=== PATIENT | male | born 1965 | race Caucasian/White ===

== ENCOUNTER 2019-01-31 15:57 | Emergency (ER) | payer SELFPAY ==
--- NOTE | 2019-01-31 16:32 | ER Document Report ---
ED Medical Screen (RME) - General Chief Complaint: Irregular Pulse Stated Complaint: SYNCOPE Time Seen by Provider: 01/31/19 16:23 Notes: RAPID MEDICAL EVALUATION DISCLOSURE I have seen this patient as part of a Rapid Medical Evaluation and, if applicable, placed any initially appropriate orders. The patient will be seen and fully evaluated, including a full history and physical exam, by a provider (in Main ED or Fast Track) when a room becomes available. 53-year-old male PMH aortic valve replacement (porcine valve) here with complaints of syncope, shortness of breath, palpitations, and tunnel vision ongoing for the past few weeks. His first episode was 3-4 weeks ago but then had another one yesterday and then earlier today had all of the symptoms (except the syncope) and became very lightheaded prompting him to come in for evaluation. He has been checking his heart rate and states that it has been varying greatly between 40 bpm and 70 bpm. He denies any chest pain discomfort. EXAM CTAB RRR with systolic murmur TRAVEL OUTSIDE OF THE [place] IN LAST 30 DAYS: No - Related Data Allergies/Adverse Reactions: No Known Allergies Allergy (Verified 01/31/19 15:58) Past Medical History - Social History Chew tobacco use (# tins/day): Yes - Past Medical History Cardiac Medical History: Reports: Hx Hypertension Renal/ Medical History: Denies: Hx Peritoneal Dialysis Past Surgical History: Reports: Hx Cardiac Surgery - aortic valve replace-2012 Physical Exam - Vital signs Vitals: Temp Pulse Resp BP Pulse Ox 98.3 F 69 18 185/75 H 98 01/31/19 16:13 01/31/19 16:13 01/31/19 16:13 01/31/19 16:13 01/31/19 16:13 Course - Vital Signs Vital signs: Temp Pulse Resp BP Pulse Ox 98.3 F 69 18 185/75 H 98 01/31/19 16:13 01/31/19 16:13 01/31/19 16:13 01/31/19 16:13 01/31/19 16:13
[2019-01-31 16:59] LABS: ABSOLUTE BASOPHILS # (AUTO) 0.1 10^3/uL (0.0-0.2); ABSOLUTE EOSINOPHILS # (AUTO) 0.1 10^3/uL (0.0-0.6); ABSOLUTE MONOCYTES (AUTO) 0.9 10^3/uL (0.1-1.4); ABSOLUTE NEUT (AUTO) 3.8 10^3/uL (1.7-8.2); EOSINOPHILS % (AUTO) 1.9 % (0-6); HEMATOCRIT 42.4 % (37.9-51.0); HEMOGLOBIN 14.4 g/dL (13.5-17.0); LYMPHOCYTES % (AUTO) 29.6 % (13-45); MEAN CORPUSCULAR HGB CONC 33.9 g/dL (32.0-36.0); MEAN CORPUSCULAR VOLUME 89 fl (80-97); MONOCYTES % (AUTO) 12.4 % (3-13); PLATELET COUNT 190 10^3/uL (150-450); RED CELL DISTRIBUTION WIDTH 13.4 % (11.5-14.0); SEGMENTED NEUTROPHILS % (AUTO) 55.1 % (42-78); TOTAL CELLS COUNTED % (AUTO) 100 %; WHITE BLOOD COUNT 6.9 10^3/uL (4.0-10.5)
--- NOTE | 2019-01-31 17:06 | RADIOLOGY REPORT (SQ) ---
EXAM DESCRIPTION: CHEST 2 VIEWS COMPLETED DATE/TIME: 01/31/2019 4:45 pm REASON FOR STUDY: SOB, palpitations COMPARISON: None. EXAM PARAMETERS: NUMBER OF VIEWS: two views TECHNIQUE: Digital Frontal and Lateral radiographic views of the chest acquired. RADIATION DOSE: NA LIMITATIONS: none FINDINGS: LUNGS AND PLEURA: No opacities, masses or pneumothorax. No pleural effusion. MEDIASTINUM AND HILAR STRUCTURES: No masses or contour abnormalities. HEART AND VASCULAR STRUCTURES: Heart normal size. No evidence for failure. BONES: No acute findings. HARDWARE: Median sternotomy wires and artificial heart valve. OTHER: No other significant finding. IMPRESSION: NO ACUTE RADIOGRAPHIC FINDING IN THE CHEST. TECHNICAL DOCUMENTATION: JOB ID: [id number] [email or web address]- All Rights Reserved Reading location - IP/workstation name: [email or web address]
[2019-01-31 17:07] LABS: ALANINE AMINOTRANSFERASE 224 U/L (21-72); ALBUMIN 4.5 g/dL (3.5-5.0); ALKALINE PHOSPHATASE 67 U/L (38-126); ANION GAP 10 (5-19); ASPARTATE AMINO TRANSFERASE 107 U/L (17-59); BILIRUBIN,DIRECT 0.4 mg/dL (0.0-0.4); BILIRUBIN,TOTAL 0.8 mg/dL (0.2-1.3); BLOOD UREA NITROGEN 18 mg/dL (7-20); CALCIUM 9.5 mg/dL (8.4-10.2); CARBON DIOXIDE 28 mmol/L (22-30); CHLORIDE 106 mmol/L (98-107); GLUCOSE 100 mg/dL (75-110); POTASSIUM 4.5 mmol/L (3.6-5.0); SODIUM 143.6 mmol/L (137-145); TOTAL PROTEIN 6.5 g/dL (6.3-8.2)
[2019-01-31 17:21] LABS: TROPONIN I 0.085 ng/mL
[2019-01-31] MEDS ORDERED: ASPIRIN 81 MG TABLET, CHEWABLE PO ONE (17:24)
--- NOTE | 2019-01-31 17:26 | EKG REPORT ---
SEVERITY:- ABNORMAL ECG - SINUS RHYTHM LEFT BUNDLE BRANCH BLOCK : Confirmed by: Dario Elaine MD 31-Jan-2019 17:26:10
--- NOTE | 2019-01-31 18:04 | ER Document Report ---
ED Cardiac - General Chief Complaint: Irregular Pulse Stated Complaint: SYNCOPE Time Seen by Provider: 01/31/19 16:23 TRAVEL OUTSIDE OF THE [place] IN LAST 30 DAYS: No - HPI Notes: Patient is a 53-year-old male that presents to the emergency department for chief complaint of syncope. Patient reports over the last 3-4 weeks he has had 3 syncopal episodes. He states the first 1 occurred while he was on his hands and knees at work. He states he started to get tunnel vision and then woke up on the ground with his glasses bent. He states he has had 2 similar episodes both well sitting. He denied any head injury during these episodes. He states after the last episode yesterday he did check his pulse and it was 40. He has a history of aortic porcine valve replacement about 6 years ago. He denies history of bradycardia or syncope in the past. He denies being on any beta-blockers and states his o nly home medication is losartan. Patient states today he had one episode where he felt lightheaded and had tunnel vision but did not completely lose consciousness. Since being in the emergency room he states he has felt normal. He denies associated chest pain but states he gets a "funny feeling" in his chest when he is about to pass out. Past Medical History: Hypertension Past Surgical History: Porcine aortic valve replacement Social History: Denies drugs alcohol and tobacco Family History: Reviewed and noncontributory for presenting illness Allergies: Reviewed, see documented allergy list. REVIEW OF SYSTEMS: CONSTITUTIONAL : No fever No chills No diaphoresis No recent illness EENT: No vision changes No congestion No sore throat CARDIOVASCULAR: No chest pain palpitations Syncope RESPIRATORY: No shortness of breath No cough No difficulty breathing GASTROINTESTINAL: No abdominal pain No nausea No vomiting No diarrhea GENITOURINARY: No dysuria No hematuria No difficulty urinating MUSCULOSKELETAL: No back pain No leg pain No arm pain SKIN: No rashes No lesions LYMPHATIC: No swollen, enlarged glands. NEUROLOGICAL: No lightheadedness No headache No weakness No paresthesias PSYCHIATRIC: No anxiety No depression PHYSICAL EXAMINATION: Vital signs reviewed, nursing noted reviewed. GENERAL: Well-appearing, well-nourished and in no acute distress. HEAD: Atraumatic, normocephalic. EYES: Eyes appear normal, extraocular movements intact, sclera anicteric, conjunctiva are normal. ENT: nares patent, oropharynx clear without exudates. Moist mucous membranes. NECK: Normal range of motion, supple without lymphadenopathy LUNGS: Breath sounds clear to auscultation bilaterally and equal. No wheezes rales or rhonchi. HEART: Bradycardic rate, regular rhythm without murmurs ABDOMEN: Soft, nontender, normoactive bowel sounds. No rebound, guarding, or rigidity. No masses appreciated. EXTREMITIES: Nontender, good range of motion, no pitting or edema. NEUROLOGICAL: No focal neurological deficits. Moves all extremities spontaneously Motor and sensory grossly intact on exam. PSYCH: Normal mood, normal affect. SKIN: Warm, Dry, normal turgor, no rashes or lesions noted on exposed skin - Related Data Allergies/Adverse Reactions: No Known Allergies Allergy (Verified 01/31/19 15:58) Past Medical History - Social History Smoking Status: Never Smoker Chew tobacco use (# tins/day): Yes Family History: Reviewed & Not Pertinent Patient has suicidal ideation: No Patient has homicidal ideation: No - Past Medical History Cardiac Medical History: Reports: Hx Hypertension Renal/ Medical History: Denies: Hx Peritoneal Dialysis Past Surgical History: Reports: Hx Cardiac Surgery - aortic valve replace-2012 Physical Exam - Vital signs Vitals: Temp Pulse Resp BP Pulse Ox 98.3 F 69 18 185/75 H 98 01/31/19 16:13 01/31/19 16:13 01/31/19 16:13 01/31/19 16:13 01/31/19 16:13 Course - Re-evaluation Re-evalutation: 01/31/19 18:03 Vitals reviewed. Nursing notes reviewed. Patient is mentating appropriately and asymptomatic during my exam. His telemetry monitoring shows a heart rate ranging from 41-47. Patient's monitor appears to have a heart block however his initial EKG showed only a mild AL prolongation. Repeat EKG confirms complete heart block. Patient did have pacer pads placed with a crash cart in the room however he has been mentating normally with a stable blood pressure and has not required transcutaneous pacing. His lab work shows a slight elevation in his troponin at 0.085 and he has received aspirin. Patients care was discussed with Dr. Baldwin at cardiac [facility] who has accepted patient for transfer. Plan to transfer for pacemaker placement and EP evaluation. Patient in agreement with plan of care and stable for transfer Laboratory 01/31/19 01/31/19 01/31/19 16:41 16:41 16:41 WBC 6.9 RBC 4.80 Hgb 14.4 Hct 42.4 MCV 89 MCH 30.0 MCHC 33.9 RDW 13.4 Plt Count 190 Seg Neutrophils % 55.1 Lymphocytes % 29.6 Monocytes % 12.4 Eosinophils % 1.9 Basophils % 1.0 Absolute Neutrophils 3.8 Absolute Lymphocytes 2.0 Absolute Monocytes 0.9 Absolute Eosinophils 0.1 Absolute Basophils 0.1 Sodium 143.6 Potassium 4.5 Chloride 106 Carbon Dioxide 28 Anion Gap 10 BUN 18 Creatinine 1.07 Est GFR ( Amer) > 60 Est GFR (Non-Af Amer) > 60 Glucose 100 Calcium 9.5 Magnesium 2.0 Total Bilirubin 0.8 Direct Bilirubin 0.4 Neonat Total Bilirubin Not Reportable Neonat Direct Bilirubin Not Reportable Neonat Indirect Bili Not Reportable AST 107 H ALT 224 H Alkaline Phosphatase 67 Troponin I 0.085 NT-Pro-B Natriuret Pep 1740 H Total Protein 6.5 Albumin 4.5 TSH 01/31/19 16:41 WBC RBC Hgb Hct MCV MCH MCHC RDW Plt Count Seg Neutrophils % Lymphocytes % Monocytes % Eosinophils % Basophils % Absolute Neutrophils Absolute Lymphocytes Absolute Monocytes Absolute Eosinophils Absolute Basophils Sodium Potassium Chloride Carbon Dioxide Anion Gap BUN Creatinine Est GFR ( Amer) Est GFR (Non-Af Amer) Glucose Calcium Magnesium Total Bilirubin Direct Bilirubin Neonat Total Bilirubin Neonat Direct Bilirubin Neonat Indirect Bili AST ALT Alkaline Phosphatase Troponin I NT-Pro-B Natriuret Pep Total Protein Albumin TSH 2.50 Chest X-Ray 01/31/19 16:29 IMPRESSION: NO ACUTE RADIOGRAPHIC FINDING IN THE CHEST. - Vital Signs Vital signs: Temp Pulse Resp BP Pulse Ox 98.3 F 69 18 185/75 H 98 01/31/19 16:13 01/31/19 16:13 01/31/19 16:13 01/31/19 16:13 01/31/19 16:13 - Laboratory Result Diagrams: 01/31/19 16:41 01/31/19 16:41 Laboratory results interpreted by me: 01/31/19 01/31/19 16:41 16:41 AST 107 H ALT 224 H NT-Pro-B Natriuret Pep 1740 H - EKG Interpretation by Me Additional EKG results interpreted by me: 01/31/19 18:05 Interpreted by myself 11/23/2008: Normal sinus rhythm with first-degree AV block, left bundle branch block, left axis 1734: Complete heart block, rate 45, wide QRS complexes Critical Care Note - Critical Care Note Total time excluding time spent on procedures (mins): 40 Comments: 40 Minutes of critical care time spent in direct contact evaluating and reevaluating the patient, treating symptoms, reviewing labs and studies and speaking with family and consultants excluding any procedures. Patient with potential for hemodynamic decompensation Discharge - Discharge Clinical Impression: Complete heart block Syncope Qualifiers: Syncope type: unspecified Qualified Code(s): R55 - Syncope and collapse Condition: Stable Disposition: [facility]
[2019-01-31 18:26] VITALS: BP 158/61
--- NOTE | 2019-01-31 22:53 | EKG REPORT ---
SEVERITY:- ABNORMAL ECG - COMPLETE AV BLOCK WITH WIDE QRS COMPLEX VR 45. : Confirmed by: Dario Elaine MD 31-Jan-2019 22:53:24
== END 2019-01-31 18:55 | disposition short-term general hospital (02) ==
LOC: ER 15:57
DX: I44.2 Atrioventricular block, complete (principal); R00.1 Bradycardia, unspecified; R55 Syncope and collapse; R74.8 Abnormal levels of other serum enzymes; I10 Essential (primary) hypertension; Z79.899 Other long term (current) drug therapy; Z95.3 Presence of xenogenic heart valve; Z72.0 Tobacco use
CPT/HCPCS: 36415; 71046; 80053; 83735; 83880; 84443; 84484; 85025; 93005; 93010; 99291

== ENCOUNTER 2019-09-21 10:22 | Emergency (ER) | payer MEDICAID ==
--- NOTE | 2019-09-21 11:04 | ER Document Report ---
ED Medical Screen (RME) - General Chief Complaint: Dizziness Stated Complaint: DIZZINESS Time Seen by Provider: 09/21/19 10:59 Mode of Arrival: Ambulatory Information source: Patient Notes: 54-year-old male presented to ED for dizzy lightheaded euphoric feeling after he finished his treadmill at cardiac rehab. He states he told him to check them out because he did not feel right. He states he was pacemaker was placed and it 60 when his pacemaker was set for 70. He states now he feels dizzy but nothing as dramatic as earlier. Until that his pacemaker is firing again. Is alert oriented respirations regular nonlabored speaking in full sentences EKG does show a pulse rate of 90. Patient states he had a aortic valve replacement twice this year and a pacemaker placed when he placed his aortic valve the second time they left the lead out and that is what he felt like today was like he is leaving the left out again. He states his pacemaker was checked in August. I have greeted and performed a rapid initial assessment of this patient. A comprehensive ED assessment and evaluation of the patient, analysis of test results and completion of medical decision making process will be conducted by an additional ED providers. TRAVEL OUTSIDE OF THE [place] IN LAST 30 DAYS: No - Related Data Allergies/Adverse Reactions: No Known Allergies Allergy (Verified 09/21/19 10:58) Past Medical History - Past Medical History Cardiac Medical History: Reports: Hx Hypertension Renal/ Medical History: Denies: Hx Peritoneal Dialysis Past Surgical History: Reports: Hx Cardiac Surgery - aortic valve replace-2012
[2019-09-21 11:41] LABS: ABSOLUTE BASOPHILS # (AUTO) 0.1 10^3/uL (0.0-0.2); ABSOLUTE EOSINOPHILS # (AUTO) 0.1 10^3/uL (0.0-0.6); ABSOLUTE LYMPHOCYTES (AUTO) 2.1 10^3/uL (0.5-4.7); ABSOLUTE MONOCYTES (AUTO) 1.1 10^3/uL (0.1-1.4); BASOPHILS % (AUTO) 1.5 % (0-2); EOSINOPHILS % (AUTO) 1.4 % (0-6); HEMATOCRIT 44.2 % (37.9-51.0); HEMOGLOBIN 13.7 g/dL (13.5-17.0); LYMPHOCYTES % (AUTO) 24.6 % (13-45); MEAN CORPUSCULAR HEMOGLOBIN 22.4 pg (27.0-33.4); MEAN CORPUSCULAR HGB CONC 31.1 g/dL (32.0-36.0); MEAN CORPUSCULAR VOLUME 72 fl (80-97); MONOCYTES % (AUTO) 12.8 % (3-13); PLATELET COUNT 251 10^3/uL (150-450); RED BLOOD COUNT 6.14 10^6/uL (4.35-5.55); RED CELL DISTRIBUTION WIDTH 18.5 % (11.5-14.0); SEGMENTED NEUTROPHILS % (AUTO) 59.7 % (42-78); TOTAL CELLS COUNTED % (AUTO) 100 %; WHITE BLOOD COUNT 8.3 10^3/uL (4.0-10.5)
[2019-09-21 11:47] LABS: INTERNATIONAL RATION (INR) 1.06; PROTHROMBIN TIME 13.8 SEC (11.4-15.4)
[2019-09-21 11:48] LABS: PARTIAL THROMBOPLASTIN TIME 28.4 SEC (23.5-35.8)
--- NOTE | 2019-09-21 11:54 | RADIOLOGY REPORT (SQ) ---
EXAM DESCRIPTION: CT HEAD WITHOUT COMPLETED DATE/TIME: 09/21/2019 11:45 am REASON FOR STUDY: Severe new onset headache COMPARISON: None. TECHNIQUE: Axial images acquired through the brain without intravenous contrast. Images reviewed wi th bone, brain and subdural windows. Additional sagittal and coronal reconstructions were generated. Images stored on PACS. All CT scanners at this facility use dose modulation, iterative reconstruction, and/or weight based d osing when appropriate to reduce radiation dose to as low as reasonably achievable (ALARA). [facility]: Dose Right [facility]: CareDose [facility]: Dose Right [facility]: Teradose 4D [facility]: Nexmo RADIATION DOSE: CT Rad equipment meets quality standard of care and radiation dose reduction techniq ues were employed. CTDIvol: 53.2 mGy. DLP: 1017 mGy-cm. mGy. LIMITATIONS: None. FINDINGS: VENTRICLES: Normal size and contour. CEREBRUM: No masses. No hemorrhage. No midline shift. No evidence for acute infarction. Normal gra y/white matter differentiation. No areas of low density in the white matter. CEREBELLUM: No masses. No hemorrhage. No alteration of density. No evidence for acute infarction. EXTRAAXIAL SPACES: No fluid collections. No masses. ORBITS AND GLOBE: No intra- or extraconal masses. Normal contour of globe without masses. CALVARIUM: No fracture. PARANASAL SINUSES: No fluid or mucosal thickening. SOFT TISSUES: No mass or hematoma. OTHER: No other significant finding. IMPRESSION: NORMAL BRAIN CT WITHOUT CONTRAST. EVIDENCE OF ACUTE STROKE: NO. COMMENT: Quality ID # [id number]: Final reports with documentation of one or more dose reduction techniques (e.g., Automated exposure control, adjustment of the mA and/or kV according to patient size, use of iterative reconstruction technique) TECHNICAL DOCUMENTATION: JOB ID: [id number] [employer]- All Rights Reserved Reading location - IP/workstation name: [email or web address]
--- NOTE | 2019-09-21 12:03 | RADIOLOGY REPORT (SQ) ---
EXAM DESCRIPTION: CHEST 2 VIEWS COMPLETED DATE/TIME: 09/21/2019 11:48 am REASON FOR STUDY: dizziness during syncope COMPARISON: 01/31/2019 EXAM PARAMETERS: NUMBER OF VIEWS: two views TECHNIQUE: Digital Frontal and Lateral radiographic views of the chest acquired. RADIATION DOSE: NA LIMITATIONS: none FINDINGS: LUNGS AND PLEURA: No opacities, masses or pneumothorax. No pleural effusion. MEDIASTINUM AND HILAR STRUCTURES: No masses or contour abnormalities. HEART AND VASCULAR STRUCTURES: Heart size is borderline. BONES: No acute findings. HARDWARE: Pacemaker. Sternotomy wires. Heart valve. OTHER: No other significant finding. IMPRESSION: Borderline cardiomegaly without pulmonary edema. TECHNICAL DOCUMENTATION: JOB ID: [id number] [employer]- All Rights Reserved Reading location - IP/workstation name: [email or web address]
--- NOTE | 2019-09-21 12:06 | ER Document Report ---
ED General <NICKY HAYNES Lashae - Last Filed: 09/21/19 17:36> - General Mode of Arrival: Ambulatory Information source: Patient TRAVEL OUTSIDE OF THE [place] IN LAST 30 DAYS: No - Related Data Home Medications: [employer] <BETTINA BUENO - Last Filed: 09/23/19 00:53> - General Chief Complaint: Dizziness Stated Complaint: DIZZINESS Time Seen by Provider: 09/21/19 10:59 Primary Care Provider: RODRIGUEZ FAIRCHILD PA-C [Primary Care Provider] - Follow up as needed Notes: Today his twelve-lead was compared to prior on 01/31/2019 shows a ventricularly paced rhythm there is no evidence of any scar Bosa criteria to suggest ischemia rates around 90 (BETTINA BUENO) - HPI Notes: History of second AV replacement June 2019, biventricular pacemaker status post third-degree heart block January 2019, presents today after feeling like he might pass out at cardiac rehab. At that time his electrical monitoring showed a paced ventricular paced rhythm at 60s which is much lower than his minimum programmed of 70 he almost felt like he might pass out with tunnel vision but did not actually lose consciousness and they had him sit down at rehab. He said his blood pressure was 220 systolic at that time. He felt like his hearing on the left was a little different but no vision change no hemiparesis or other difficulty speaking no shortness of breath no nausea vomiting diaphoresis. And has not had subsequent event since transferred to the ED here. He denies any fevers chills sweats says he has been doing good at rehab. He was doing some tricep presses and chest presses then got on the recumbent bicycle and then on the treadmill. It was when he was stepping off the treadmill that he suddenly had that sensation described above. He denies any other recent decreased exercise tolerance or passing out or near passing out. No other chest pain no other rashes or skin changes over the device area. No other focal neurologic deficits. Denies any lapse in his usual medications. (BETTINA BUENO) - Related Data Allergies/Adverse Reactions: No Known Allergies Allergy (Verified 09/21/19 10:58) Past Medical History - General Information source: Patient - See HPI - Social History Smoking Status: Current Every Day Smoker Chew tobacco use (# tins/day): Yes Frequency of alcohol use: Rare Drug Abuse: None Family History: Reviewed & Not Pertinent Patient has suicidal ideation: No Patient has homicidal ideation: No - Past Medical History Cardiac Medical History: Reports: Hx Hypertension Renal/ Medical History: Denies: Hx Peritoneal Dialysis Past Surgical History: Reports: Hx Cardiac Surgery - aortic valve replace-2012, repeat av replacement 06/2019 c/b <BETTINA BUENO - Last Filed: 09/23/19 00:53> - Past Medical History Other: See HPI (BETTINA BUENO) Review of Systems - Review of Systems Constitutional: See HPI. denies: Chills, Diaphoresis, Fever, Weakness, Weight gain, Weight loss, Recent illness EENT: denies: Eye pain, Blurred vision, Double vision, Difficulty swallowing, Throat swelling, Vertigo Cardiovascular: Lightheaded. denies: Chest pain, Palpitations, Dyspnea, Syncope, Edema, Paroxysmal Nocturnal Dysp Respiratory: denies: Cough, Hurts to breathe, Hemoptysis, Short of breath, Stridor, Wheezing Gastrointestinal: denies: Abdominal pain, Diarrhea, Nausea, Vomiting, Poor appetite, Poor fluid intake Genitourinary: No symptoms reported. denies: Hematuria, Pain, Retention Male Genitourinary: No symptoms reported Musculoskeletal: No symptoms reported Skin: No symptoms reported Neurological/Psychological: denies: Confusion, Weakness, Gait changes, Lost consciousness, Speech impairment, Numbness, Tingling -: Yes All other systems reviewed and negative <BETTINA BUENO - Last Filed: 09/23/19 00:53> Physical Exam - HEENT Head: Normocephalic, Atraumatic Eyes: No: Pale conjunctiva, Scleral icterus Extraocular movements intact: Yes Pupils: PERRL Visual acuity- Both eyes: Intact Nerve palsy: No Visual ferris normal: No <BETTINA BUENO - Last Filed: 09/23/19 00:53> - Vital signs Vitals: Temp Pulse Resp BP Pulse Ox 98.1 F 105 H 16 129/90 H 97 09/21/19 10:56 09/21/19 10:56 09/21/19 10:56 09/21/19 10:56 09/21/19 10:56 - General Notes: No acute distress ANO x4, moving all extremities no respiratory distress all extremities warm well perfused grossly (BETTINA BUENO) Course - Laboratory Result Diagrams: 09/21/19 11:25 09/21/19 11:25 <NICKY HAYNES - Last Filed: 09/21/19 17:36> - Laboratory Result Diagrams: 09/21/19 11:25 09/21/19 11:25 <BETTINA BUENO - Last Filed: 09/23/19 00:53> - Re-evaluation Re-evalutation: 09/21/19 17:37 I was asked to assume care of this patient approximate 5 PM. I went into discussed the care with the patient. He states he was feeling better and had no symptoms at rest. He states the symptoms are only with exertion. I then spoke to the die holder at [facility]. He states that if the patient had no symptoms at rest - the patient was safe for discharge. He states he would see the patient tomorrow in device clinic. This was relayed to the patient and he was okay with this plan. (NICKY HAYNES) - Vital Signs Vital signs: Temp Pulse Resp BP Pulse Ox 98.3 F 82 13 143/78 H 98 09/21/19 18:02 09/21/19 17:51 09/21/19 17:47 09/21/19 17:51 09/21/19 17:47 - Laboratory Laboratory results interpreted by me: 09/21/19 11:25 RBC 6.14 H MCV 72 L MCH 22.4 L MCHC 31.1 L RDW 18.5 H - Diagnostic Test Radiology results interpreted by me: 09/21/19 13:26 Reviewed two-view chest x-ray compared to prior on 01-24-19 at which time he did not yet have his biventricular pacemaker. Today there is no evidence of lead fractures or surrounding fluid collections. Cardiomegaly unchanged no other pneumothoraces or other rib fractures evident on this film. No focal consolidations on AP or lateral, (BETTINA BUENO) - Transfer of Care Notes: 09/22/19 remainder of ED course patient's HR was in the 80s 70s and ventricularly paced. He continued to be asymptomatic. Continue to have no new focal neuro deficits. No signs of ataxia on ambulation at time of discharge and during my neuro exam. No chest pain no feeling of lightheadedness or near passing or any other new symptoms while in our ED. Able to obtain interrogation of device in our ED and this was faxed to his die holder at [facility]. I spoke also with the [employer] sql server consultant who did say his presenting rhythm did have some atrial undersensing and some overdrive pacing. At time of my signout in the ED plan was to first speak with [facility] die holder regarding the [employer] report, and that I was okay with close follow-up tomorrow as outpatient and cardiology if that was their plan after reviewing his interrogation, given that he has been so stable and the event earlier was in the setting of working out on the treadmill at rehab and that he would be with and that he had remained asymptomatic and device functional while in the ED here for hours. Otherwise if there was any interval events before could speak with cardiology plan would be to admit. (BETTINA BUENO) Discharge <NICKY HAYNES - Last Filed: 09/21/19 17:36> <BETTINA BUENO - Last Filed: 09/23/19 00:53> - Discharge Clinical Impression: Near syncope Pacemaker complications Qualifiers: Encounter type: initial encounter Qualified Code(s): T82.9XXA - Unspecified complication of cardiac and vascular prosthetic device, implant and graft, initial encounter Condition: Stable Disposition: HOME, SELF-CARE Additional Instructions: Please go to device clinic tomorrow at [facility]. They state they will call you in the morning for the appointment. If you do not hear from them by 10 AM please call [phone] and ask for device clinic. Referrals: RODRIGUEZ FAIRCHILD PA-C [Primary Care Provider] - Follow up as needed
[2019-09-21 12:09] LABS: ALBUMIN 4.6 g/dL (3.5-5.0); ALKALINE PHOSPHATASE 55 U/L (38-126); ANION GAP 9 (5-19); ASPARTATE AMINO TRANSFERASE 24 U/L (17-59); BILIRUBIN,DIRECT 0.1 mg/dL (0.0-0.4); BLOOD UREA NITROGEN 13 mg/dL (7-20); CALCIUM 9.6 mg/dL (8.4-10.2); CARBON DIOXIDE 30 mmol/L (22-30); CHLORIDE 100 mmol/L (98-107); CREATINE KINASE 144 U/L (55-170); GLUCOSE 92 mg/dL (75-110); POTASSIUM 4.9 mmol/L (3.6-5.0); TOTAL PROTEIN 7.1 g/dL (6.3-8.2)
[2019-09-21 12:22] LABS: CREATINE KINASE MB 2.14 ng/mL (<4.55); TROPONIN I 0.031 ng/mL
[2019-09-21] MEDS ORDERED: TRAMADOL HCL 50 MG TABLET PO ONE (17:07)
[2019-09-21 18:02] VITALS: BP 123/78
--- NOTE | 2019-09-22 09:48 | EKG REPORT ---
SEVERITY:- ABNORMAL ECG - VENTRICULAR-PACED RHYTHM : Confirmed by: Tequila Martinez 22-Sep-2019 09:45:28
== END 2019-09-21 18:04 | disposition home or self-care (01) ==
LOC: ER 10:22
DX: T82.9XXA Unspecified complication of cardiac and vascular prosthetic device, implant and graft, initial encounter (principal); R55 Syncope and collapse; R42 Dizziness and giddiness; F17.220 Nicotine dependence, chewing tobacco, uncomplicated; X58.XXXA Exposure to other specified factors, initial encounter; I10 Essential (primary) hypertension; Z95.0 Presence of cardiac pacemaker; Z95.4 Presence of other heart-valve replacement
CPT/HCPCS: 36415; 70450; 71046; 80053; 82550; 82553; 83735; 84484; 85025; 85610; 85730; 93005; 93010; 99284